=== PATIENT | male | born 2000 | race Caucasian/White ===

== ENCOUNTER 2024-05-03 20:01 | Observation (INO) | payer OTHER ==
[2024-05-03 20:21] VITALS: BMI 25.1
[2024-05-03] MEDS ORDERED: ACETAMINOPHEN INJECTION 100 ML ONE (20:55)
[2024-05-03] MEDS ORDERED: FAMOTIDINE 20 MG/50 ML IVPB 20 MG/50 ML MG IVPB ONE (20:55)
[2024-05-03] MEDS ORDERED: ONDANSETRON 4 MG/2 ML VIAL ONE (20:55)
[2024-05-03] MEDS: ONDANSETRON 4 MG/2 ML VIAL IVPUSH ONE (21:03)
[2024-05-03] MEDS: SODIUM CHLORIDE 0.9% 500 ML INFUS.BAG IV ONE ×2 (21:03→23:44)
[2024-05-03] MEDS: ACETAMINOPHEN 1000 MG/100 ML BAG IVPB ONE (21:03)
[2024-05-03 21:05] LABS: HEMATOCRIT 45.5 % (35.4-49); HEMOGLOBIN 15.5 GM/dL (11.7-16.9); MCH 29.8 pg (25.7-33.7); MCHC 34.1 g/dl (32.0-35.9); MEAN CELL VOLUME 87.3 fl (80-96); MEAN PLT VOLUME 8.1 fl (7.5-11.1); PLATELET COUNT 186 10^3/uL (134-434); RBC 5.22 M/mm3 (4.00-5.60); WHITE BLOOD COUNT 12.1 K/mm3 (4.0-10.0)
[2024-05-03 21:24] LABS: POTASSIUM 3.9 mmol/L (3.5-5.1)
[2024-05-03 21:26] LABS: CALCIUM 9.8 mg/dL (8.5-10.1)
[2024-05-03 21:28] LABS: ALBUMIN 4.5 g/dl (3.4-5.0); BLOOD UREA NITROGEN 9.7 mg/dL (7-18)
[2024-05-03 21:30] LABS: CREATININE 0.9 mg/dL (0.55-1.3)
[2024-05-03 21:31] LABS: BILIRUBIN,TOTAL 0.7 mg/dL (0.2-1)
[2024-05-03 21:32] LABS: TOT PROT 7.5 g/dl (6.4-8.2)
[2024-05-03] MEDS ORDERED: HALOPERIDOL LACTATE 5 MG/ML ONE (21:46)
[2024-05-03] MEDS: HALOPERIDOL LACTATE 5 MG/ML IM ONE (21:52)
[2024-05-03] MEDS: FAMOTIDINE 20 MG/50 ML IVPB 20 MG/50 ML MG IVPB ONE (21:52)
[2024-05-03 22:03] LABS: ANISOCYTOSIS 0; MACROCYTOSIS 0
[2024-05-03 22:31] LABS: HIV INTERPRETATION NEGATIVE (NEGATIVE)
[2024-05-04 01:22] LABS: COCAINE, UR NEGATIVE (NEGATIVE); URINE AMPHETAMINES NEGATIVE (NEGATIVE); URINE BARBITURATES NEGATIVE (NEGATIVE)
[2024-05-04 01:23] LABS: METHADONE, UR NEGATIVE (NEGATIVE); PHENCYCLIDINE,URINE NEGATIVE (NEGATIVE)
[2024-05-04] MEDS ORDERED: ONDANSETRON 4 MG/2 ML VIAL IVPB PRN (01:33)
[2024-05-04 01:39] LABS: OPIATES, URI POSITIVE (NEGATIVE); URINE BENZODIAZEPINES NEGATIVE (NEGATIVE)
[2024-05-04] MEDS: SODIUM CHLORIDE 1,000 ML IV SCH (01:48)
[2024-05-04] MEDS: LACTATED RINGERS SOLUTION 1,000 ML/1,000 ML INFUS.BAG IV SCH (03:21)
[2024-05-04 09:54] VITALS: BP 119/69; PULSE 74; RESP 17; TEMP 99
[2024-05-04 10:51] LABS: BASO % 0.3 % (0-2.0); HEMATOCRIT 42.4 % (35.4-49); HEMOGLOBIN 14.2 GM/dL (11.7-16.9); LYMPH % 22.2 % (8-40); MCH 29.3 pg (25.7-33.7); MCHC 33.3 g/dl (32.0-35.9); MEAN PLT VOLUME 8.7 fl (7.5-11.1); MONO % 6.6 % (3.8-10.2); NEUT % 70.9 % (42.8-82.8); PLATELET COUNT 176 10^3/uL (134-434); RBC 4.83 M/mm3 (4.00-5.60); RDW 12.6 % (11.9-15.9); WHITE BLOOD COUNT 12.1 K/mm3 (4.0-10.0)
[2024-05-04 11:20] LABS: POTASSIUM 3.4 mmol/L (3.5-5.1)
[2024-05-04 11:30] LABS: ALBUMIN 3.6 g/dl (3.4-5.0); BLOOD UREA NITROGEN 5.5 mg/dL (7-18); CALCIUM 9.2 mg/dL (8.5-10.1); MAGNESIUM 1.5 mg/dL (1.8-2.4)
[2024-05-04 11:33] LABS: BILIRUBIN,TOTAL 0.8 mg/dL (0.2-1); CREATININE 0.7 mg/dL (0.55-1.3); PHOSPHOROUS 3.5 mg/dL (2.5-4.9); TOT PROT 6.2 g/dl (6.4-8.2)
== END 2024-05-04 11:18 | disposition home or self-care (01) ==
LOC: JER 20:01 → JERBED 23:32 → J7W 05-04 02:28
PROVIDERS: ADMIT Internal Medicine; ATTEND Internal Medicine
PROC: 3E033NZ Introduction of Analgesics, Hypnotics, Sedatives into Peripheral Vein, Percutaneous Approach (ICD-10-PCS; principal; 2024-05-03)
PROC: 3E023GC Introduction of Other Therapeutic Substance into Muscle, Percutaneous Approach (ICD-10-PCS; 2024-05-03)
PROC: 3E0337Z Introduction of Electrolytic and Water Balance Substance into Peripheral Vein, Percutaneous Approach (ICD-10-PCS; 2024-05-03)
PROC: 3E033GC Introduction of Other Therapeutic Substance into Peripheral Vein, Percutaneous Approach (ICD-10-PCS; 2024-05-03)
DX: R11.2 Nausea with vomiting, unspecified (principal); F12.90 Cannabis use, unspecified, uncomplicated
CPT/HCPCS: 0241U-QW; 36415; 71046-TC-FY; 76705-TC; 80053; 80307; 83690; 83735; 84100; 85025; 86803; 87389; 93005; 93010; 96361; 96365; 96372; 96375; 99285-25; G0378; J0131

== ENCOUNTER 2024-05-05 13:52 | Emergency (ER) | payer OTHER ==
[2024-05-05 13:58] VITALS: BP 147/91; PULSE 75; RESP 19; TEMP 98.5; BMI 21.7
[2024-05-05] MEDS ORDERED: HALOPERIDOL LACTATE 5 MG/ML ONE (15:21)
[2024-05-05] MEDS: HALOPERIDOL LACTATE 5 MG/ML IM ONE (15:28)
== END 2024-05-05 17:44 | disposition home or self-care (01) ==
LOC: JER 13:52
PROC: 3E023GC Introduction of Other Therapeutic Substance into Muscle, Percutaneous Approach (ICD-10-PCS; principal; 2024-05-05)
DX: R10.13 Epigastric pain (principal); R11.2 Nausea with vomiting, unspecified; F12.188 Cannabis abuse with other cannabis-induced disorder
CPT/HCPCS: 99284-25